=== PATIENT | male | born 2000 | race African-American/Black ===

== ENCOUNTER 2024-05-30 00:50 | Emergency (ER) | payer SELFPAY ==
[~2024-05-30] VITALS: Ht 188 cm; Wt 100.0 kg
[2024-05-30 01:29] VITALS: O2SAT 98
[2024-05-30] MEDS: MIDAZOLAM HCL 2 MG/2 ML VIAL IV ONE (01:29)
[2024-05-30 02:35] LABS: BASOPHILS % 0.4 % (0.0-2.0); EOSINOPHILS % 2.6 % (0.0-5.0); HEMATOCRIT. 40.7 % (42.0-52.0); HEMOGLOBIN. 13.5 g/dL (14.0-18.0); LYMPHOCYTES % 39.5 % (20.0-50.0); MEAN CORPUSCULAR HEMOGLOBIN 27.1 pg (28.0-32.0); MEAN CORPUSCULAR HGB CONC 33.2 g/dL (31.0-37.0); MEAN CORPUSCULAR VOLUME 81.7 fL (80.0-94.0); MEAN PLATELET VOLUME 8.5 fl (7.4-10.4); MONOCYTES % 7.5 % (2.0-8.0); PLATELET 174 x1000/uL (130-400); RED BLOOD CELL COUNT 4.98 mill/uL (4.7-6.1); WHITE BLOOD COUNT 4.4 x1000/uL (4.5-11.0)
[2024-05-30 02:44] LABS: CHLORIDE 104 mEq/L (98-107); POTASSIUM 3.3 mEq/L (3.5-5.1); SODIUM 140 mEq/L (136-145)
[2024-05-30 02:45] LABS: CALCIUM 9.1 mg/dL (8.7-10.4); CARBON DIOXIDE 21 mEq/L (21-32)
[2024-05-30] MEDS: MIDAZOLAM HCL 2 MG/2 ML VIAL IM ONE (02:49)
[2024-05-30 02:50] LABS: GLUCOSE 99 mg/dL (70-105); TROPONIN I HIGH SENSITIVITY 11 ng/L (3.0-53); UREA NITROGEN BLOOD 10 mg/dL (9-23)
[2024-05-30 02:52] LABS: ALANINE AMINOTRANSFERASE 26 IU/L (10-49); ALBUMIN 4.7 g/dL (3.2-4.8); ASPARTATE AMINOTRANSFERASE 58 IU/L (<34); BILIRUBIN DIRECT 0.2 mg/dL (<=3.0); BILIRUBIN TOTAL 0.4 mg/dL (0.1-1.0); INR 0.9; PROTHROMBIN TIME 10.6 sec (9.6-11.0)
[2024-05-30] MEDS: ZIPRASIDONE MESYLATE 20MG/VIAL IM ONE (03:11)
[2024-05-30] MEDS ORDERED: DIPHENHYDRAMINE 50MG/ML VIAL IM PRN (03:15)
[2024-05-30 05:09] LABS: TROPONIN I HIGH SENSITIVITY 11 ng/L (3.0-53)
[2024-05-30 07:01] VITALS: BP 150/90; PULSE 104; RESP 18
== END 2024-05-30 09:33 | disposition left against medical advice (07) ==
LOC: ER 00:50
DX: T50.905A Adverse effect of unspecified drugs, medicaments and biological substances, initial encounter (principal); Y92.89 Other specified places as the place of occurrence of the external cause
CPT/HCPCS: 80076; 80048; 83690; 85025; 85610; 84484; 36415; 71045; 93005; 96372; 96374; 99291; 99292; J2250; J3486; Z7610